=== PATIENT | female | born 1970 | race Caucasian/White ===

== ENCOUNTER → 2024-04-20 19:40 | Outpatient (REF) | payer BC, SELFPAY | LOC: WDC 19:40 | PROVIDERS: ATTENDING PHYSICIAN Internal Medicine | DX: Z12.31 Encounter for screening mammogram for malignant neoplasm of breast (principal); N64.59 Other signs and symptoms in breast | CPT/HCPCS: 77063; 77067 ==

== ENCOUNTER → 2024-05-12 14:33 | Outpatient (REF) | payer BC, SELFPAY | LOC: WDC 14:33 | PROVIDERS: ATTENDING PHYSICIAN Internal Medicine | DX: R92.8 Other abnormal and inconclusive findings on diagnostic imaging of breast (principal) | CPT/HCPCS: 76642 ==

== ENCOUNTER → 2024-08-13 14:56 | Outpatient (REF) | payer BC, SELFPAY | LOC: HWRAD 14:56 | PROVIDERS: ATTENDING PHYSICIAN Dermatology; FAMILY PHYSICIAN Internal Medicine | DX: D48.5 Neoplasm of uncertain behavior of skin (principal) | CPT/HCPCS: 76882 ==

== ENCOUNTER 2025-02-11 06:23 | Day surgery (SDC) | payer BC, SELFPAY | END 2025-02-11 08:48 | disposition home or self-care (01) | LOC: GI 06:23 | PROVIDERS: ATTENDING PHYSICIAN Internal Medicine | DX: Z12.11 Encounter for screening for malignant neoplasm of colon (principal); D12.0 Benign neoplasm of cecum; D12.3 Benign neoplasm of transverse colon; K63.5 Polyp of colon; K55.20 Angiodysplasia of colon without hemorrhage; K62.1 Rectal polyp; K64.8 Other hemorrhoids; Z86.0100 Personal history of colon polyps, unspecified; Z83.719 Family history of colon polyps, unspecified | CPT/HCPCS: 45385; 45380; 88305 ==